=== PATIENT | male | born 1950 | race African-American/Black ===

== ENCOUNTER 2024-11-15 10:00 | Emergency (ER) | payer BC, OTHER ==
[~2024-11-15] VITALS: Ht 188 cm; Wt 74.0 kg
--- NOTE | 2024-11-15 11:08 | DVH ---
CLINICAL INDICATION: PAIN TECHNIQUE: Frontal view of the pelvis, and frontal and lateral views of the left hip. Comparison: None FINDINGS/IMPRESSION: There is no evidence of acute fracture or dislocation. Soft tissues are unremarkable.
--- NOTE | 2024-11-15 11:19 | ED.PDOC ---
Musculoskeletal HPI Comments 74y M who presents to the ED for chief complaint of lower extremity pain. Pt states he had cast placed on his LLE Saturday and states it was removed on due to pain. Pt states he has noted ulcers on the L foot and states he wanted the cast removed due to pain from the ulcers. Pt states he is also having pain to the L hip. Pt otherwise rates the pain 10/10, constant, with otherwise no noted exacerbating or relieving factors. Pt otherwise denies any fall or injury. Pt states he has been having receiving treatment at the [facility] for [facility]. Pt denies any other symptoms at this time. Chief Complaint: Lower Extremity Time Seen by MD: 11:12 Primary Care Provider: [facility] Reviewed Notes: Allergies Allergies: Coded Allergies: NO KNOWN ALLERGIES (Unverified , 12/03/13) Information Source: Patient Mode of Arrival: Wheelchair Brought in by: self Past Medical History PAST MEDICAL HISTORY: Asthma, DM Social History Smoker: Non-Smoker Alcohol: Denies ETOH Use Drugs: Denies Drug Use Constitutional: denies: chills, diaphoresis, fatigue, fever, malaise, sweats, weakness, others EENTM: denies: blurred vision, double vision, ear bleeding, ear discharge, ear drainage, ear pain, ear ringing, eye pain, eye redness, hearing loss, mouth pain, mouth swelling, nasal discharge, nose bleeding, nose congestion, nose pain, photophobia, tearing, throat pain, throat swelling, voice changes, others Respiratory: denies: cough, hemoptysis, orthopnea, SOB at rest, shortness of breath, SOB with excertion, stridor, wheezing, others Cardiovascular: denies: chest pain, dizzy spells, diaphoresis, Dyspnea on exertion, edema, irregular heart beat, left arm pain, lightheadedness, palpitations, PND, syncope, others Gastrointestinal: denies: abdomen distended, abdominal pain, blood streaked bowels, constipated, diarrhea, dysphagia, difficulty swallowing, hematemesis, melena, nausea, poor appetite, poor fluid intake, rectal bleeding, rectal pain, vomiting, others Genitourinary: denies: burning, dysuria, flank pain, frequency, hematuria, incontinence, penile discharge, penile sore, pain, testicle pain, testicle swelling, urgency, others Neurological: denies: dizziness, fainting, headache, left sided numbness, left sided weakness, numbness, paresthesia, pre-existing deficit, right sided numbness, right sided weakness, seizure, speech problems, tingling, tremors, weakness, others Musculoskeletal: reports: joint pain (L hip); denies: back pain, gout, joint swelling, muscle pain, muscle stiffness, neck pain, others Integumetry: reports: others (ulcers on L foot); denies: bruises, change in color, change in hair/nails, dryness, laceration, lesions, lumps, rash, wounds Allergic/Immunocompromised: denies: Difficulty Healing, Frequent Infections, Hives, Itching, others Hematologic/Lymphatic: denies: anemia, blood clots, easy bleeding, easy bruising, swollen glands, others Endocrine: denies: excessive hunger, excessive sweating, excessive thirst, excessive urination, flushing, intolerance to cold, intolerance to heat, unexplained weight gain, unexplained weight loss, others Psychiatric: denies: anxiety, bipolar disorder, depression, hopeless, panic di sorder, schizophrenia, sleepless, suicidal, others All Other Systems: Reviewed and Negative Physical Exam General Appearance: No Apparent Distress, Normal HEENT: Normal ENT Inspection, Pharynx Normal, TMs Normal Neck: Full Range of Motion, Non-Tender, Normal, Normal Inspection Respiratory: Chest Non-Tender, Lungs Clear, No Accessory Muscle Use, No Respiratory Distress, Normal Breath Sounds Cardiovascular: No Edema, No JVD, No Murmur, No Gallop, Normal Peripheral Pulses, Regular Rate/Rhythm Breast Exam: Deferred Gastrointestinal: No Organomegaly, Non Tender, No Pulsatile Mass, Normal Bowel Sounds, Soft Genitalia: Deferred Pelvic: Deferred Rectal: Deferred Extremities: No calf tenderness, Normal capillary refill, Normal inspection, Normal range of motion, No pedal edema, Tender (left hip mild ttp. no deformities, no swelling, no bruising) Musculoskeletal : Apperance: Normal Neurologic: Alert, trash hauler II-XII nml as Tested, No Motor Deficits, Normal Affect, Normal Mood, No Sensory Deficits Cerebellar Function: Normal Reflexes: Normal Skin: Dry, Normal Color, Warm Lymphatic: No Adenopathy Was a procedure done? Was a procedure done?: No Differential Diagnosis EXT Differential Diagnosis: Cellulitis, Fracture, Sprain, DJD, Strain, Rheumatoid, Arthritis X-Ray, Labs, Meds, VS Vital Signs Date Time Temp Pulse Resp B/P (MAP) Pulse Ox O2 Delivery O2 Flow Rate FiO2 11/15/24 11:23 97.4 84 16 125/76 (92) 97 97.4 11/15/24 11:23 84 16 97 Room Air 11/15/24 10:21 98.0 116 16 123/83 (96) 100 Current Medications Medications (Trade) Dose Ordered Sig/Sara Route Start Time Stop Time Status Last Admin Acetaminophen/ Hydrocodone Bitart (Marcella 10/325MG Tab) 1 tab ONCE ONCE PO 11/15/24 10:30 11/15/24 11:04 DC 11/15/24 11:20 [place] [address] Ph: [phone] DIAGNOSTIC IMAGING Diagnostic Imaging Report : [id number] Signed PATIENT: YESSY FAUST ACCT: [id number] UNIT: [id number] : 1950 LOC: ER ROOM / BED: / AGE / SEX: 74 / M ADM STATUS: REG ER SERVICE 1026 ORDERING PHYSICIAN: CITLALLI HAMMONDS MD PROCEDURE(s): LHIP - L HIP COMPLETE XRAY REASON: PAIN ORDER NUMBER(s): [id number], ACCESSION NUMBER(s): [id number] CLINICAL INDICATION: PAIN TECHNIQUE: Frontal view of the pelvis, and frontal and lateral views of the left hip. Comparison: None FINDINGS/IMPRESSION: There is no evidence of acute fracture or dislocation. Soft tissues are unremarkable. ATED BY: PETER WARREN MD DICTATED DATE/TIME: 11/15/24 110 SIGNED BY: PETER WARREN MD SIGNED DATE/TIME: 11/15/24 110 CC: Time of 1ST Reevaluation: 11:45 Reevaluation 1ST: Unchanged Time of 2ND Reevaluation: 12:34 Reevaluation 2ND: Resolved Patient Education/Counseling: Diagnosis, Treatment, Prognosis, Need For Follow Up Family Education/Counseling: No Family Present Additional Information - I reviewed the following notes from patient's past medical encounters: - The following tests were ordered, and results were reviewed by me: (Labs, X- Ray, EKG): L hip x-ray, Marcella, - Additional information was gathered from interviewing the following independent Historian: (Family, Other Providers, EMT): none - I reviewed and agreed with the following test results read by other provider: (X-ray, CT, US): radiologist - I discussed treatments and results with medical personnel and: (consultants, family): none Departure 1 Departure Time of Disposition: 12:34 Impression: Primary Impression: Strain of left hip Qualified Codes: S76.012A - Strain of muscle, fascia and tendon of left hip, initial encounter Disposition: HOME / SELF CARE / HOMELESS Condition: Good e-Prescriptions Hydrocodone-Acetaminophen (Hydrocodone Bitartrate/AC 5-325 mg) 1 Tab Tab 1 TAB PO Q12HP PRN for 3 Days, #6 TAB Prov: CITLALLI HAMMONDS MD 11/15/24 Discharged With: Self Critical Care Note Critical Care Time?: No Stability Stability form required: No Heart Score Heart Score: Heart Score Response (Comments) Value History N/A 0 EKG N/A 0 Age N/A 0 Risk Factors N/A 0 Troponin N/A 0 Total 0 I personally scribed for CITLALLI HAMMONDS MD ([email or web address]) on 11/15/24 at 11:19. Electronically submitted by Daniela Mckeon ([email or web address]). I personally scribed for CITLALLI HAMMONDS MD (LYNDA) on 11/15/24 at 11:25. Electronically submitted by Daniela HER). CITLALLI HAMMONDS MD Nov 15, 2024 11:19
[2024-11-15] MEDS: HYDROcodone-ACET 10/325MG TAB PO ONE (11:20)
[2024-11-15 11:23] VITALS: BP 125/76; PULSE 84; RESP 16; TEMP 97.4; O2SAT 97
[2024-11-15] MEDS ORDERED: HYDR-4902 PO (12:35)
== END 2024-11-15 12:45 | disposition home or self-care (01) ==
LOC: ER 10:00
DX: S76.012A Strain of muscle, fascia and tendon of left hip, initial encounter (principal); E11.621 Type 2 diabetes mellitus with foot ulcer; L97.529 Non-pressure chronic ulcer of other part of left foot with unspecified severity; J45.909 Unspecified asthma, uncomplicated; X58.XXXA Exposure to other specified factors, initial encounter; Y93.89 Activity, other specified; Y92.89 Other specified places as the place of occurrence of the external cause; Y99.8 Other external cause status
CPT/HCPCS: 73502